=== PATIENT | male | born 1965 ===

== ENCOUNTER 2020-03-12 12:51 | Emergency (ER) | payer SELFPAY ==
--- NOTE | 2020-03-12 13:24 | XRay Report ---
CHEST 1 VIEW 03/12/2020 1:18 PM INDICATION / CLINICAL INFORMATION: Chest Pain. COMPARISON: None available. FINDINGS: SUPPORT DEVICES: None. HEART / MEDIASTINUM: No significant abnormality. LUNGS / PLEURA: There are patchy bilateral hazy opacities in both lungs. There is no pleural effusion . No pneumothorax. ADDITIONAL FINDINGS: No significant additional findings. IMPRESSION: 1. Patchy bilateral pulmonary parenchymal opacities that could reflect atypical infectious process. Signer Name: Jatin Becerra MD Signed: 03/12/2020 1:20 PM Workstation Name: [id number]
--- NOTE | 2020-03-12 14:07 | Emergency Department Report ---
ED Shortness of Breath HPI - General Chief Complaint: Dyspnea/Respdistress Stated Complaint: COUGH Time Seen by Provider: 03/12/20 13:59 Source: patient Mode of arrival: Ambulatory Limitations: Language Barrier (Fence Gate [employer]er used/older) - History of Present Illness Initial Comments: 54-year-old male with no significant past medical history presents to the hospital complaints of cough and palpitations. Patient has had a cough productive of white phlegm for the last 2 weeks. He thinks he had a subjective fever x1 day 4 days ago. He denies nausea, vomiting, diarrhea, sore throat, or abdominal pain. Patient did have chest pressure yesterday which has since resolved. He smokes 1 cigarette monthly. Patient denies shortness of breath, dyspnea on exertion, recent travel, receiving flu shot, or sick contacts. Patient was seen by a urgent care clinic and sent to the ER for evaluation. Patient has not worked in the last 1.5 weeks and lives in the home with his and children - Related Data Allergies Allergy/AdvReac Type Severity Reaction Status Date / Time No Known Allergies Allergy Unverified 03/12/20 12:53 ED Review of Systems ROS: Stated complaint: COUGH Other details as noted in HPI Comment: All other systems reviewed and negative ED Past Medical Hx - Past Medical History Previous Medical History?: No Additional medical history: genital herpes - Surgical History Past Surgical History?: Yes Additional Surgical History: right clavical surgery - Social History Smoking Status: Current Some Day Smoker ED Physical Exam - General Limitations: Language Barrier - Other Other exam information: General: No acute distress Head: Atraumatic Eyes: normal appearance ENT: Moist mucous membranes Neck: Normal appearance, no midline tenderness Chest: Clear to auscultation bilaterally CV: Regular rate and rhythm Abdomen: Soft, normal bowel sounds, nontender, nondistended, no rebound or guarding Back: Normal inspection Extremity: Normal inspection, full range of motion Neuro: Alert O x 3, no facial asymmetry, speech clear, no gross motor sensory deficit Psych: Appropriate behavior Skin: No rash ED Course Vital Signs 03/12/20 03/12/20 03/12/20 12:53 14:42 14:45 Temperature 98.2 F Pulse Rate 115 H 108 H 109 H Respiratory 20 20 21 Rate Blood Pressure 136/90 130/90 O2 Sat by Pulse 95 93 Oximetry 03/12/20 03/12/20 03/12/20 15:02 15:16 15:30 Temperature Pulse Rate 107 H 96 H 93 H Respiratory 16 33 H 21 Rate Blood Pressure 130/90 130/90 130/90 O2 Sat by Pulse 95 95 96 Oximetry 03/12/20 03/12/20 03/12/20 15:46 16:00 16:15 Temperature Pulse Rate 97 H 96 H 88 Respiratory 26 H 14 26 H Rate Blood Pressure 148/86 156/92 141/89 O2 Sat by Pulse 97 93 96 Oximetry 03/12/20 03/12/20 03/12/20 16:30 16:46 17:47 Temperature Pulse Rate 105 H 96 H 87 Respiratory 24 20 20 Rate Blood Pressure 141/89 184/93 128/88 O2 Sat by Pulse 95 95 96 Oximetry - Reevaluation(s) Reevaluation #1: 03/12/20 15:00 Patient saturation 95% on room air and remains and remained 95% with ambulation without desaturation 03/12/20 17:00 Heart rate 95-99 1:09 liter normal saline intolerant patient reports feeling better ED Medical Decision Making - Lab Data Result diagrams: 03/12/20 13:32 03/12/20 13:32 Lab Results 03/12/20 03/12/20 03/12/20 Range/Units 13:32 13:32 15:40 WBC 7.8 (4.5-11.0) K/mm3 RBC 4.75 (3.65-5.03) M/mm3 Hgb 14.8 (11.8-15.2) gm/dl Hct 43.2 (35.5-45.6) % MCV 91 (84-94) fl MCH 31 (28-32) pg MCHC 34 (32-34) % RDW 12.6 L (13.2-15.2) % Plt Count 169 (140-440) K/mm3 Lymph % (Auto) 12.9 L (13.4-35.0) % [place] % (Auto) 6.9 (0.0-7.3) % Eos % (Auto) 0.0 (0.0-4.3) % Baso % (Auto) 0.2 (0.0-1.8) % Lymph # 1.0 L (1.2-5.4) K/mm3 [place] # 0.5 (0.0-0.8) K/mm3 Eos # 0.0 (0.0-0.4) K/mm3 Baso # 0.0 (0.0-0.1) K/mm3 Seg Neutrophils % 80.0 H (40.0-70.0) % Seg Neutrophils # 6.2 (1.8-7.7) K/mm3 Sodium 135 L (137-145) mmol/L Potassium 4.2 (3.6-5.0) mmol/L Chloride 95.0 L (98-107) mmol/L Carbon Dioxide 21 L (22-30) mmol/L Anion Gap 23 mmol/L BUN 9 (9-20) mg/dL Creatinine 0.8 (0.8-1.5) mg/dL Estimated GFR > 60 ml/min BUN/Creatinine Ratio 11 % Glucose 125 H (75-100) mg/dL Calcium 9.1 (8.4-10.2) mg/dL Troponin T < 0.010 (0.00-0.029) ng/mL Influenza A (Rapid) Negative (Negative) Influenza B (Rapid) Negative (Negative) 03/12/20 Range/Units 16:00 WBC (4.5-11.0) K/mm3 RBC (3.65-5.03) M/mm3 Hgb (11.8-15.2) gm/dl Hct (35.5-45.6) % MCV (84-94) fl MCH (28-32) pg MCHC (32-34) % RDW (13.2-15.2) % Plt Count (140-440) K/mm3 Lymph % (Auto) (13.4-35.0) % [place] % (Auto) (0.0-7.3) % Eos % (Auto) (0.0-4.3) % Baso % (Auto) (0.0-1.8) % Lymph # (1.2-5.4) K/mm3 [place] # (0.0-0.8) K/mm3 Eos # (0.0-0.4) K/mm3 Baso # (0.0-0.1) K/mm3 Seg Neutrophils % (40.0-70.0) % Seg Neutrophils # (1.8-7.7) K/mm3 Sodium (137-145) mmol/L Potassium (3.6-5.0) mmol/L Chloride (98-107) mmol/L Carbon Dioxide (22-30) mmol/L Anion Gap mmol/L BUN (9-20) mg/dL Creatinine (0.8-1.5) mg/dL Estimated GFR ml/min BUN/Creatinine Ratio % Glucose (75-100) mg/dL Calcium (8.4-10.2) mg/dL Troponin T < 0.010 (0.00-0.029) ng/mL Influenza A (Rapid) (Negative) Influenza B (Rapid) (Negative) - EKG Data -: EKG Interpreted by Ma EKG shows normal: sinus rhythm Rate: tachycardia (104) - Radiology Data Radiology results: report reviewed CHEST 1 VIEW 03/12/2020 1:18 PM INDICATION / CLINICAL INFORMATION: Chest Pain. COMPARISON: None available. FINDINGS: SUPPORT DEVICES: None. HEART / MEDIASTINUM: No significant abnormality. LUNGS / PLEURA: There are patchy bilateral hazy opacities in both lungs. There is no pleural effusion. No pneu mothorax. ADDITIONAL FINDINGS: No significant additional findings. IMPRESSION: 1. Patchy bilateral pulmonary parenchymal opacities that could reflect atypical infectious process. - Medical Decision Making Patient states he feels much better after receiving IV fluids. Heart rate is in the mid to high 90s. Room air saturation 95 to 97% without desaturation with ambulation. EKG normal sinus without ischemic changes and troponin negative x2. Influenza test also negative. No signs of severe sepsis or septic shock. Patient required azithromycin for atypical pneumonia and will be discharged home with azithromycin and COVID precautions. Patient provided info regarding outpatient COVID testing - Differential Diagnosis pneumonia, bronchitis, PE, CHF, dehydration, viral syndrome Critical Care Time: No Critical care attestation.: If time is entered above; I have spent that time in minutes in the direct care of this critically ill patient, excluding procedure time. ED Disposition Clinical Impression: Atypical pneumonia, Suspected COVID-19 virus infection Disposition: DC-01 TO HOME OR SELFCARE Is pt being admited?: No Does the pt Need Aspirin: No Condition: Stable Instructions: COVID-19, Community-acquired Pneumonia (ED) Additional Instructions: Take the medication as prescribed. Follow-up with your doctor or doctor/clinic provided. Return if symptoms worsen as indicated by your discharge instructions and as discussed in the ED. You may go to the following website provided to request outpatient coronavirus testing. You are presumed to be positive for coronavirus at this time and therefore you are contagious and need to quarantine for 15 days. You are also at risk of spreading coronavirus to others including those living in your home. Continue to wear the mask provided and comply with the 6 feet distancing recommendation. [facility] testing website link: [email or web address] Casas la medicacin segn lo prescrito. Seguimiento con lynch mdico o mdico / clnica proporcionada. Regrese si los sntomas empeoran segn lo indicado por sonny instrucciones de karen y segn lo discutido en el ED. Puede ir al siguiente sitio web proporcionado para solicitar sam prueba ambulatoria de coronavirus. Se presume que es positivo para el coronavirus en josé momento y, por lo tanto, es contagioso y necesita ponerse en cuarentena cayla 15 marin. Tambin corre el riesgo de transmitir el coronavirus a otras personas, incluidas las que viven en lynch hogar. Contine usando la mscara provista y cumpla con la recomendacin de distancia de 6 pies. Enlace al sitio web de pruebas de [facility]: [email or web address] Referrals: PRIMARY MD EVER [Primary Care Provider] - 3-5 Days MEREDITH SALAZAR MD [Staff Physician] - 3-5 Days [facility] [Provider Group] - 3-5 Days Time of Disposition: 17:57 Print Language: ETHIOPIAN
[2020-03-12 14:12] LABS: Basophils % (Auto) 0.2 % (0.0-1.8); Hematocrit 43.2 % (35.5-45.6); Hemoglobin 14.8 gm/dl (11.8-15.2); Lymphocytes % (Auto) 12.9 % (13.4-35.0); Mean Corpuscular HGB Conc 34 % (32-34); Mean Corpuscular Volume 91 fl (84-94); Monocytes # (Auto) 0.5 K/mm3 (0.0-0.8); Monocytes % (Auto) 6.9 % (0.0-7.3); Platelet Count 169 K/mm3 (140-440); Red Blood Count 4.75 M/mm3 (3.65-5.03); Red Cell Distribution Width 12.6 % (13.2-15.2)
[2020-03-12 14:20] LABS: BUN/Creatinine Ratio 11; Blood Urea Nitrogen 9 mg/dL (9-20); Calcium 9.1 mg/dL (8.4-10.2); Hemolysis Index 0
[2020-03-12] MEDS ORDERED: SODIUM CHLORIDE 0.9% 1000 ML 1,000 ML IV ONE (14:51)
[2020-03-12] MEDS ORDERED: AZITHROMYCIN 250 MG TAB PO ONE (15:03)
[2020-03-12 17:57] VITALS: BP 128/88
== END 2020-03-12 18:35 | disposition home or self-care (01) ==
LOC: ED 12:51
DX: J18.9 Pneumonia, unspecified organism (principal); F17.200 Nicotine dependence, unspecified, uncomplicated; Z20.828 Contact with and (suspected) exposure to other viral communicable diseases; Z79.899 Other long term (current) drug therapy
CPT/HCPCS: 36415; 71045; 80048; 84484; 85025; 87400; 93005; 93010; 99284; J7030

== ENCOUNTER 2021-01-29 15:31 | Emergency (ER) | payer SELFPAY ==
--- NOTE | 2021-01-29 17:05 | Event Note ---
ED Screening Note Date of service: 01/29/21 Time: 17:00 ED Screening Note: 55-year-old male presents to the emergency room complaining of shortness of breath. Patient was seen by GISELA Swain to have his right ear cleaned out and was referred here to the emergency room concern for possible Covid since his saturations was 94%. Denies any fever chills no nausea no vomiting. Patient has no complaints. Saturations 95% on room air and heart rate ranging from 107-112. This initial assessment/diagnostic orders/clinical plan/treatment(s) is/are subject to change based on patients health status, clinical progression and re- assessment by fellow clinical providers in the ED. Further treatment and workup at subsequent clinical providers discretion. Patient/guardian urged not to elope from the ED as their condition may be serious if not clinically assessed and managed. Initial orders include:
[2021-01-29 17:39] LABS: Basophils % (Auto) 0.4 % (0.0-1.8); Eosinophils # (Auto) 0.1 K/mm3 (0.0-0.4); Eosinophils % (Auto) 1.4 % (0.0-4.3); Hematocrit 44.5 % (35.5-45.6); Hemoglobin 15.6 gm/dl (11.8-15.2); Lymphocytes # (Auto) 1.7 K/mm3 (1.2-5.4); Lymphocytes % (Auto) 26.4 % (13.4-35.0); Mean Corpuscular HGB Conc 35 % (32-34); Mean Corpuscular Volume 94 fl (84-94); Monocytes # (Auto) 0.6 K/mm3 (0.0-0.8); Platelet Count 193 K/mm3 (140-440); Red Blood Count 4.74 M/mm3 (3.65-5.03); Red Cell Distribution Width 11.9 % (13.2-15.2)
--- NOTE | 2021-01-29 17:40 | XRay Report ---
CHEST 2 VIEWS, 01/29/2021 5:33 PM INDICATION: Shortness of breath COMPARISON: Chest radiograph, 03/12/2020 FINDINGS: Support devices: None. Heart: The cardiac silhouette is normal in size. Lungs/pleura: The lungs are clear of focal airspace disease or significant pleural effusion Additional findings: No significant acute abnormality. IMPRESSION: 1. No evidence of acute cardiopulmonary process. Signer Name: Merary Truong MD Signed: 01/29/2021 5:35 PM Workstation Name: [id number]
[2021-01-29 17:53] LABS: Alanine Aminotransferase 33 units/L (7-56); Albumin 4.6 g/dL (3.9-5); BUN/Creatinine Ratio 16; Blood Urea Nitrogen 14 mg/dL (9-20); Calcium 9.3 mg/dL (8.4-10.2); Hemolysis Index 16
--- NOTE | 2021-01-29 19:55 | Emergency Department Report ---
ED General Adult HPI - General Chief complaint: Dyspnea/Respdistress Stated complaint: POSSIBLE COVID PUI?: No Time Seen by Provider: 01/29/21 19:38 Source: patient Mode of arrival: Ambulatory Limitations: No Limitations - History of Present Illness Initial comments: Patient is a 55-year-old male that presents emergency room with complaints of low oxygen. Patient states he was at his primary care for an ear lavage and his oxygen saturation was 94%. Patient states his primary care sent him here to be evaluated for pneumonia. Patient denies cough. Patient denies fever and chills. Patient denies chest pain. Patient denies shortness of breath. Patient denies any physical symptoms. Patient denies pain. Patient denies recent travel. Patient denies recent international travel. Patient denies exposure to the novel coronavirus. Patient denies sick contacts. Patient denies fever and chills. Patient denies cough. Patient denies diarrhea. Patient denies coming in contact with anybody with symptoms of the novel coronavirus. -: Sudden Improves with: none Worsens with: none Associated Symptoms: denies other symptoms. denies: confusion, chest pain, cough, diaphoresis, fever/chills, headaches, loss of appetite, malaise, nausea/vomiting, rash, seizure, shortness of breath, syncope, weakness - Related Data Previous Rx's Medication Instructions Recorded Last Taken Type Azithromycin [Zithromax TAB] 250 mg PO QDAY #4 tablet 03/12/20 Unknown Rx Allergies Allergy/AdvReac Type Severity Reaction Status Date / Time No Known Allergies Allergy Unverified 03/12/20 12:53 ED Review of Systems ROS: Stated complaint: POSSIBLE COVID Other details as noted in HPI Comment: All other systems reviewed and negative Constitutional: denies: chills, fever Eyes: denies: eye pain, eye discharge, vision change ENT: denies: ear pain, throat pain Respiratory: denies: cough, shortness of breath, wheezing Cardiovascular: denies: chest pain, palpitations Endocrine: no symptoms reported Gastrointestinal: denies: abdominal pain, nausea, diarrhea Genitourinary: denies: urgency, dysuria Musculoskeletal: denies: back pain, joint swelling, arthralgia Skin: denies: rash, lesions Neurological: denies: headache, weakness, paresthesias Psychiatric: denies: anxiety, depression Hematological/Lymphatic: denies: easy bleeding, easy bruising ED Past Medical Hx - Past Medical History Previous Medical History?: Yes Additional medical history: genital herpes - Surgical History Past Surgical History?: Yes Additional Surgical History: right clavical surgery - Family History Family history: no significant - Social History Smoking Status: Never Smoker Substance Use Type: None - Medications Home Medications: Home Medications Medication Instructions Recorded Confirmed Last Taken Type Azithromycin [Zithromax TAB] 250 mg PO QDAY #4 tablet 03/12/20 Unknown Rx ED Physical Exam - General Limitations: No Limitations General appearance: alert, in no apparent distress - Head Head exam: Present: atraumatic, normocephalic - Eye Eye exam: Present: normal appearance, PERRL Pupils: Present: normal accommodation - ENT ENT exam: Present: mucous membranes moist - Neck Neck exam: Present: normal inspection - Respiratory Respiratory exam: Present: normal lung sounds bilaterally. Absent: respiratory distress, wheezes, rales, rhonchi, chest wall tenderness - Cardiovascular Cardiovascular Exam: Present: regular rate, normal rhythm, normal heart sounds. Absent: systolic murmur, diastolic murmur, rubs, gallop - GI/Abdominal GI/Abdominal exam: Present: soft, normal bowel sounds. Absent: distended, tenderness, guarding - Rectal Rectal exam: Present: deferred - Extremities Exam Extremities exam: Present: normal inspection - Back Exam Back exam: Present: normal inspection - Neurological Exam Neurological exam: Present: alert, oriented X3 - Psychiatric Psychiatric exam: Present: normal affect, normal mood - Skin Skin exam: Present: warm, dry, intact, normal color. Absent: rash ED Course Vital Signs 01/29/21 15:58 Temperature 98.2 F Pulse Rate 111 H Respiratory 24 Rate Blood Pressure 137/102 O2 Sat by Pulse 95 Oximetry - Reevaluation(s) Reevaluation #1: Patient oxygen saturation in triage was 95%. Patient ambulatory in room. Patient's oxygen saturation was 96 to 98% the entire time during ambulation. I discussed all results and clinical findings with patient. I discussed plan of care with patient. Patient agrees with plan of care. Patient is stable for discharge. Patient will be discharged home. Patient given discharge instructions. Patient voiced understanding of discharge instructions. 01/29/21 19:57 ED Medical Decision Making - Lab Data Result diagrams: 01/29/21 17:11 01/29/21 17:11 - Radiology Data Radiology results: report reviewed, image reviewed interpreted by me: Chest x-ray: No pneumonia, no pneumothorax, no foreign body, no osseous findings, no acute findings CHEST 2 VIEWS, 01/29/2021 5:33 PM INDICATION: Shortness of breath COMPARISON: Chest radiograph, 03/12/2020 FINDINGS: Support devices: None. Heart: The cardiac silhouette is normal in size. Lungs/pleura: The lungs are clear of focal airspace disease or significant pleural effusion Additional findings: No significant acute abnormality. IMPRESSION: 1. No evidence of acute cardiopulmonary process. - Medical Decision Making Patient is a 55-year-old male that presents emergency room with complaints of low oxygen at his primary care's office. Patient is asymptomatic. Patient does not have any physical complaints. Patient had labs done which were essentially unremarkable. Patient had a chest x-ray which was negative for acute finding. I personally reviewed the chest x-ray. Patient's oxygen saturation was 95% in triage and was 96 to 98% the entire time in the acute care room. Patient is stable for discharge. Patient be discharged home. Patient instructed to follow-up with his primary care. - Differential Diagnosis Hypoxia, medical clearance, pneumonia, Critical care attestation.: If time is entered above; I have spent that time in minutes in the direct care of this critically ill patient, excluding procedure time. ED Disposition Clinical Impression: Hypoxia Disposition: DC-01 TO HOME OR SELFCARE Is pt being admited?: No Does the pt Need Aspirin: No Condition: Stable Instructions: Hypoxia Additional Instructions: Patient to follow-up with primary care in 2 to 3 days. Patient to rest. Patient to increase water. Patient to return to the ER if condition worsens, changes or new symptoms arise. Time of Disposition: 20:00
[2021-01-29 20:15] VITALS: BP 128/98
== END 2021-01-29 20:09 | disposition home or self-care (01) ==
LOC: ED 15:31
DX: R09.02 Hypoxemia (principal); Z79.899 Other long term (current) drug therapy; Z98.890 Other specified postprocedural states
CPT/HCPCS: 36415; 71046; 80053; 85025